=== PATIENT | male | born 1930 | race Caucasian/White ===

== ENCOUNTER 2018-08-26 08:21 | Day surgery (SDC) | payer MEDICARE, OTHER ==
[2018-08-26] MEDS ORDERED: Lactated Ringers 1,000 ML IV SCH (09:30)
[2018-08-26] MEDS ORDERED: Hydrocortisone Sodium Succinate 100 MG/2 ML SDV ONE (10:32)
[2018-08-26] MEDS ORDERED: Propofol 200 MG/20 ML SDV ONE ×2 (10:49→10:55)
[2018-08-26 12:28] VITALS: BP 222/111
--- NOTE | 2018-08-26 15:18 | OR ---
DATE OF PROCEDURE: 08/26/2018 PREOPERATIVE DIAGNOSIS: History of adenomatous colon polyps. POSTOPERATIVE DIAGNOSES: Multiple colon polyps, history of adenomatous colon polyp, melanosis coli. PROCEDURE: Colonoscopy to the cecum with biopsy resection of multiple colon polyps. SURGEON: Yehuda Chao MD ANESTHESIA: IV anesthesia with monitored anesthesia care. INDICATION: This 87-year-old white male is referred for a colonoscopy because of a history of adenomatous colon polyps. His last colonoscopic exam he says was done 3 years ago. I counseled him for the procedure, including risks and alternatives, and he gave his informed consent to proceed. DESCRIPTION OF PROCEDURE: The patient was placed in a left lateral decubitus position. IV anesthesia was administered by the Anesthesia Service. Time-out was held. A rectal exam was performed, which was unremarkable. The flexible video Olympus colonoscope was introduced through his anus, up his rectum, and out his colon all the way to the cecum. Once the cecum was reached, the scope was slowly withdrawn examining the mucosa throughout. 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 There were two polyps adjacent to each other in the cecum. These were removed with the biopsy forceps. The scope was brought back into the proximal right colon, another small polyp was seen, which was removed with the biopsy forceps. The scope was withdrawn further with another polyp, which was small, seen in the transverse colon. This was removed with the biopsy forceps. No other lesions were noted, other than the melanosis coli, until we reached about 20 cm from the anal verge. Here a small polyp was seen, which we removed with the biopsy forceps, and when the scope was brought back in the rectum, another small polyp was seen and removed with the biopsy forceps. The scope was retroflexed in the rectum with the distal rectum appearing unremarkable. The scope was straightened and removed. He tolerated the procedure well. Yehuda Chao MD /[id number]
== END 2018-08-26 12:45 | disposition home or self-care (01) ==
LOC: JP.SDS 08:21
PROVIDERS: ATTEND Surgery
DX: Z12.11 Encounter for screening for malignant neoplasm of colon (principal); D12.0 Benign neoplasm of cecum; D12.2 Benign neoplasm of ascending colon; D12.5 Benign neoplasm of sigmoid colon; D12.3 Benign neoplasm of transverse colon; K62.1 Rectal polyp; K63.89 Other specified diseases of intestine; I10 Essential (primary) hypertension; I25.10 Atherosclerotic heart disease of native coronary artery without angina pectoris; I44.7 Left bundle-branch block, unspecified; E78.00 Pure hypercholesterolemia, unspecified; E03.9 Hypothyroidism, unspecified; M19.90 Unspecified osteoarthritis, unspecified site; Z90.49 Acquired absence of other specified parts of digestive tract; Z95.5 Presence of coronary angioplasty implant and graft; Z86.010 Personal history of colon polyps; Z79.02 Long term (current) use of antithrombotics/antiplatelets; Z79.82 Long term (current) use of aspirin; Z79.899 Other long term (current) drug therapy
CPT/HCPCS: 88305; J1720; J2704; J7120